=== PATIENT | male | born 1955 | race African-American/Black ===

== ENCOUNTER 2017-10-11 03:02 | Emergency (ER) | payer MEDICAID | END 2017-10-11 04:15 | disposition home or self-care (01) | LOC: D.ER 03:02 | DX: S01.81XA Laceration without foreign body of other part of head, initial encounter (principal); W19.XXXA Unspecified fall, initial encounter; Y93.89 Activity, other specified; Y92.019 Unspecified place in single-family (private) house as the place of occurrence of the external cause; S00.83XA Contusion of other part of head, initial encounter; F17.200 Nicotine dependence, unspecified, uncomplicated ==

== ENCOUNTER 2019-11-16 08:33 | Emergency (ER) | payer MEDICARE ==
[~2019-11-16] VITALS: Ht 182.9 cm; Wt 70.9 kg
[2019-11-16 08:42] VITALS: Ht 182.9 cm; Wt 70.9 kg
[2019-11-16] MEDS ORDERED: ASPIRIN325 MG PO (08:44)
[2019-11-16] MEDS ORDERED: OMEPRAZOLE20 M1 PO (08:44)
[2019-11-16] MEDS ORDERED: KEFLEX500 MG PO (09:08)
[2019-11-16] MEDS ORDERED: CLEOCIN HCL300 MG PO (09:08)
[2019-11-16 09:31] VITALS: BP 171/111
== END 2019-11-16 09:32 | disposition home or self-care (01) ==
LOC: D.ER 08:33
DX: H00.011 Hordeolum externum right upper eyelid (principal); H00.031 Abscess of right upper eyelid